=== PATIENT | male | born 1945 | race Caucasian/White ===

== ENCOUNTER 2017-01-12 07:44 | Day surgery (SDC) | payer MEDICARE, BC ==
[2017-01-12] MEDS ORDERED: Dextrose 5%-Lactated Ringers 1,000 ML IV SCH (08:00)
[2017-01-12] MEDS ORDERED: fentaNYL 100 MCG/2 ML SDV ONE (08:46)
[2017-01-12] MEDS ORDERED: Propofol 200 MG/20 ML SDV ONE (08:46)
[2017-01-12] MEDS ORDERED: Midazolam 1 MG/ML 2 ML SDV ONE (08:46)
[2017-01-12] MEDS ORDERED: Pantoprazole 40 MG Vial IVPUSH ONE (11:05)
[2017-01-12 12:12] VITALS: BP 145/76
--- NOTE | 2017-01-24 07:40 | OR ---
DATE OF PROCEDURE: 01/12/2017 PREOPERATIVE DIAGNOSIS: Dysphagia and epigastric pain. POSTOPERATIVE DIAGNOSES: 1. Dysphagia and epigastric pain associated with a small hiatal hernia with marked ulcerated gastroesophageal reflux disease. 2. Minimal antral gastritis. OPERATIVE PROCEDURE: Esophagogastroduodenoscopy with: 1. Biopsies of esophagogastric junction for histologic evaluation. 2. Biopsies of antrum for CLOtest. ANESTHESIA: IV sedation. INDICATION FOR PROCEDURE: This is a 71-year-old male who is presenting with some dysphagia as well as some epigastric pain and occasional heartburn. He is presenting for upper GI endoscopy for diagnostic purposes. Potential risks including bleeding and perforation were discussed and the patient wishes to proceed. DETAILS OF PROCEDURE: The patient was taken to the operating room and placed in a left lateral decubitus position. IV sedation was administered, after which the upper GI endoscope was passed orally through the length of the esophagus and into the stomach with retroflexion to the fundus and thereafter through the pyloric channel and to the proximal duodenum. Findings included normal hypopharynx, larynx, upper esophageal sphincter, and esophageal body. At the EG junction, there was a small hiatal hernia but quite strikingly active esophagitis with multiple areas of erosions covered with some fibrinous exudate. There was also island of gastric type mucosa away from the esophagogastric junction consistent with possible Forbes's esophagus. No stricturing or plaque-like elevation of the mucosa at any point suggestive of neoplasia per se. Within the stomach, apart from the small hiatal hernia, proximal stomach was unremarkable. There was a very mild redness in the pre-pyloric area. The pyloric channel, duodenum junction, and third and fourth portions were otherwise unremarkable. At this point, biopsies were taken from the antrum and sent for CLOtest for H. pylori and then multiple biopsies from esophagogastric junction area were obtained and then sent for histologic evaluation. No bleeding from the biopsy sites was seen and the procedure was then concluded. The patient will be given Protonix 40 mg IV in the recovery room and then began on Protonix 40 mg daily #30 with refill x5. He will be following up with Dr. Carter in about 2 weeks. This is a patient who seemed to be somewhat reluctant to go on long-term medical management. This will be something he can discuss on an ongoing basis with Dr. Carter and surgical consultation should be obtained should the patient need to be refractory to medical management or desire to get off medication as he would likewise, otherwise, be a good candidate for a Gifty fundoplication. Jimmie Philip MD /[id number]
== END 2017-01-12 12:40 | disposition home or self-care (01) ==
LOC: JP.SDS 07:44
PROVIDERS: ATTEND Surgery
DX: K21.0 Gastro-esophageal reflux disease with esophagitis (principal); K44.9 Diaphragmatic hernia without obstruction or gangrene; K29.50 Unspecified chronic gastritis without bleeding
CPT/HCPCS: 43239; 87081; 88305; C9113; J2250; J2704; J3010; J7042